=== PATIENT | male | born 1935 | race Asian ===

== ENCOUNTER 2019-02-01 11:44 | Inpatient (IN) | payer MEDICARE, OTHER ==
[~2019-02-01] VITALS: Ht 162.6 cm; Wt 54.8 kg
[2019-02-01] MEDS ORDERED: SEVE0.8P6 PO (12:09)
[2019-02-01] MEDS ORDERED: ISOS10TA16 PO (12:09)
[2019-02-01] MEDS ORDERED: ASPI81 PO (12:09)
[2019-02-01] MEDS ORDERED: NUT.237L66 PO (12:09)
[2019-02-01] MEDS ORDERED: TRAZ-252 PO (12:09)
[2019-02-01] MEDS ORDERED: DOCU-342 PO (12:09)
[2019-02-01] MEDS ORDERED: AMIO200T44 PO (12:09)
[2019-02-01] MEDS ORDERED: RANO500T3 PO (12:09)
[2019-02-01] MEDS ORDERED: POLY17PO PO (12:09)
[2019-02-01] MEDS ORDERED: INSLAN SQ (12:09)
[2019-02-01] MEDS ORDERED: PANT40TA25 PO (12:09)
[2019-02-01] MEDS ORDERED: AMLO10TA7 PO (12:09)
[2019-02-01] MEDS ORDERED: HYDR25TA84 PO (12:09)
[2019-02-01] MEDS ORDERED: LEVO500 PO (12:09)
[2019-02-01] MEDS ORDERED: ATOR40TA28 PO (12:09)
[2019-02-01] MEDS ORDERED: ALLO100T PO (12:09)
[2019-02-01] MEDS ORDERED: VIT1TABL81 PO (12:09)
[2019-02-01 12:37] LABS: BASOPHILS % (AUTO) 0.7 % (0.0-2.0); HEMATOCRIT 21.3 % (41-53); LYMPHOCYTES # (AUTO) 0.6 K/uL (1.0-4.8); LYMPHOCYTES % (AUTO) 5.9 % (22.0-44.0); MEAN CORPUSCULAR HEMOGLOBIN 26.4 pg (26.0-34.0); MEAN CORPUSCULAR HGB CONC 31.7 G/dL (31.0-37.0); MEAN CORPUSCULAR VOLUME 83 fL (80-100); MONOCYTES # (AUTO) 1.3 K/uL (0.1-1.0); MONOCYTES % (AUTO) 11.8 % (2.0-9.0); NEUTROPHILS # (AUTO) 8.9 K/uL (1.8-7.7); NEUTROPHILS % (AUTO) 80.6 % (40.0-70.0); PLATELET COUNT (AUTO) 159 K/uL (150-450); RED BLOOD CELL COUNT(AUTO) 2.56 MIL/uL (4.50-5.90); RED CELL DISTRIBUTION WIDTH 23.4 % (11.5-14.5)
[2019-02-01 12:45] LABS: HEMOGLOBIN 6.8 g/dL (13.5-17.5)
[2019-02-01 12:50] LABS: PROTHROMBIN TIME 9.9 SEC (9.4-11.6)
[2019-02-01] MEDS ORDERED: ONDANSETRON HCL 4 MG/2 ML VIAL IVP ONE (13:00)
[2019-02-01] MEDS ORDERED: SODIUM CHLORIDE 0.9% 500 ML IV ONE (13:00)
[2019-02-01] MEDS ORDERED: MORPHINE SULFATE 2 MG/ML SYRINGE IVP ONE (13:00)
[2019-02-01] MEDS: OXYGEN THERAPY IH SCH (13:05)
[2019-02-01 13:06] LABS: BILIRUBIN,TOTAL 0.5 mg/dL (0.1-1.0); CALCIUM, TOTAL 9.3 mg/dL (8.8-10.5); CREATININE 6.28 mg/dL (0.60-1.30)
[2019-02-01 13:07] LABS: TOTAL PROTEIN, SERUM 6.7 g/dL (6.4-8.2)
[2019-02-01 13:11] LABS: POTASSIUM 4.7 mmol/L (3.5-5.1)
[2019-02-01] MEDS ORDERED: NITROGLYCERIN 2% (1 GM=INCH) PACKET TP ONE (13:30)
[2019-02-01 13:39] LABS: LIPASE 60 U/L (73-393)
[2019-02-01 14:19] LABS: LACTIC ACID 3.2 mmol/L (0.4-2.0)
[2019-02-01 14:50] VITALS: BP 112/55
[2019-02-01 15:05] VITALS: BP 123/60
[2019-02-01 15:20] VITALS: BP 123/60
[2019-02-01 18:30] VITALS: BP 135/64
[2019-02-01] MEDS ORDERED: ACETAMINOPHEN 325 MG TABLET PO PRN (22:45)
[2019-02-02] VITALS (14 sets, daily range): BP systolic 119–146; BP diastolic 53–78
[2019-02-02] MEDS: MORPHINE SULFATE 2 MG/ML SYRINGE IVP PRN ×4 (00:33→16:48)
[2019-02-02] MEDS: NITROGLYCERIN 2% (1 GM=INCH) PACKET TP SCH ×6 (00:34→17:57)
[2019-02-02] MEDS: OXYGEN THERAPY IH SCH ×3 (00:36→20:22)
[2019-02-02 03:22] LABS: HEMOGLOBIN 8.1 g/dL (13.5-17.5)
[2019-02-02 03:38] LABS: CHOL/HDL RATIO 1.8 (4.2-7.3)
[2019-02-02 06:28] LABS: GLUCOMETER DEV NAME(LOC) 5N.2; GLUCOSE,POINT OF CARE 185 MG/DL (70-110)
[2019-02-02] MEDS ORDERED: DEXTROSE 50%-WATER 25 GM/50 ML SYRINGE IVP PRN (07:30)
[2019-02-02] MEDS: SEVELAMER CARBONATE 800 MG POWDER PACKET PO SCH ×3 (08:00→17:56)
[2019-02-02] MEDS: POLYETHYLENE GLYCOL 3350 17 GM PACKET PO SCH (09:00)
[2019-02-02] MEDS: LEVOFLOXACIN 500 MG TABLET PO SCH (09:00)
[2019-02-02] MEDS ORDERED: ASPIRIN 81 MG CHEWABLE TABLET PO SCH (09:00)
[2019-02-02] MEDS: ALLOPURINOL 100 MG TABLET PO SCH (09:00)
[2019-02-02] MEDS ORDERED: INSULIN GLARGINE,HUM.REC.ANLOG 100 UNITS/ML SQ SCH (09:00)
[2019-02-02] MEDS ORDERED: DOCUSATE SODIUM 100 MG CAPSULE PO SCH (09:00)
[2019-02-02] MEDS: ISOSORBIDE DINITRATE 10 MG TABLET PO SCH ×3 (09:00→21:38)
[2019-02-02] MEDS: ATORVASTATIN CALCIUM 40 MG TABLET PO SCH (09:00)
[2019-02-02] MEDS: AMIODARONE HCL 200 MG TABLET PO SCH (09:00)
[2019-02-02] MEDS: AmLODIPine BESYLATE 10 MG TABLET PO SCH (09:00)
[2019-02-02] MEDS: DOCUSATE SODIUM 250 MG CAPSULE PO SCH ×2 (09:00→21:41)
[2019-02-02] MEDS: TraZODone HCL 50 MG TABLET PO SCH (09:00)
[2019-02-02] MEDS: METOPROLOL TARTRATE 25 MG TABLET PO SCH ×2 (09:00→20:16)
[2019-02-02] MEDS: HydrALAZINE HCL 25 MG TABLET PO SCH ×3 (09:00→21:38)
[2019-02-02] MEDS: PANTOPRAZOLE SODIUM 40 MG DR TABLET PO SCH ×2 (09:00→20:17)
[2019-02-02] MEDS: RANOLAZINE 500 MG ER TABLET PO SCH ×5 (09:00→21:38)
[2019-02-02] MEDS: VITAMIN B COMPLEX WITH C TABLET PO SCH (09:00)
[2019-02-02] MEDS ORDERED: ONDANSETRON HCL 4 MG/2 ML VIAL IVP PRN (10:15)
[2019-02-02] MEDS ORDERED: SODIUM CHLORIDE 0.9% 500 ML IV ONE (13:29)
[2019-02-02 13:44] LABS: HEMATOCRIT 26.2 % (41-53); HEMOGLOBIN 8.5 g/dL (13.5-17.5)
[2019-02-02] MEDS ORDERED: SODIUM CHLORIDE 0.9% IRRIG BTL 1,000 ML IRRIG ONE (17:06)
[2019-02-02 17:45] LABS: GLUCOMETER DEV NAME(LOC) 5N.1; GLUCOSE,POINT OF CARE 133 MG/DL (70-110)
[2019-02-02] MEDS: INSULIN LISPRO 100 UNITS/ML SQ PRN (18:03)
[2019-02-02 20:39] LABS: HEMATOCRIT 30.1 % (41-53); HEMOGLOBIN 9.7 g/dL (13.5-17.5)
[2019-02-02] MEDS: INSULIN GLARGINE,HUM.REC.ANLOG 100 UNITS/ML SQ SCH (21:00)
[2019-02-03 00:07] VITALS: BP 139/67
[2019-02-03] MEDS: ZOLPIDEM TARTRATE 10 MG TABLET PO PRN (00:10)
[2019-02-03] MEDS: NITROGLYCERIN 2% (1 GM=INCH) PACKET TP SCH ×5 (00:10→18:12)
[2019-02-03 01:10] LABS: GLUCOMETER DEV NAME(LOC) 5N.2; GLUCOSE,POINT OF CARE 170 MG/DL (70-110)
[2019-02-03 01:11] LABS: GLUCOMETER DEV NAME(LOC) 5N.1; GLUCOSE,POINT OF CARE 79 MG/DL (70-110)
[2019-02-03 05:14] VITALS: BP 105/56
[2019-02-03] MEDS ORDERED: SODIUM CL IRRIG SOLN BOTTLE 250 ML IRRIG ONE (05:32)
[2019-02-03 06:41] LABS: GLUCOMETER DEV NAME(LOC) 5N.2; GLUCOSE,POINT OF CARE 223 MG/DL (70-110)
[2019-02-03] MEDS: INSULIN LISPRO 100 UNITS/ML SQ PRN ×3 (06:44→18:25)
[2019-02-03 07:49] LABS: BASOPHILS % (AUTO) 0.1 % (0.0-2.0); EOSINOPHILS % (AUTO) 0.5 % (1.0-6.0); HEMATOCRIT 27.9 % (41-53); LYMPHOCYTES # (AUTO) 0.4 K/uL (1.0-4.8); LYMPHOCYTES % (AUTO) 3.1 % (22.0-44.0); MEAN CORPUSCULAR HEMOGLOBIN 27.1 pg (26.0-34.0); MEAN CORPUSCULAR HGB CONC 32.1 G/dL (31.0-37.0); MEAN CORPUSCULAR VOLUME 85 fL (80-100); MONOCYTES # (AUTO) 1.6 K/uL (0.1-1.0); MONOCYTES % (AUTO) 12.7 % (2.0-9.0); NEUTROPHILS # (AUTO) 10.3 K/uL (1.8-7.7); NEUTROPHILS % (AUTO) 83.6 % (40.0-70.0); PLATELET COUNT (AUTO) 154 K/uL (150-450); RED BLOOD CELL COUNT(AUTO) 3.31 MIL/uL (4.50-5.90); RED CELL DISTRIBUTION WIDTH 20.9 % (11.5-14.5)
[2019-02-03 08:01] LABS: ALBUMIN 2.7 g/dL (3.4-5.0); BILIRUBIN,TOTAL 0.6 mg/dL (0.1-1.0); CALCIUM, TOTAL 9.1 mg/dL (8.8-10.5); CREATININE 6.46 mg/dL (0.60-1.30); MAGNESIUM 2.3 mg/dL (1.80-2.40); POTASSIUM 4.7 mmol/L (3.5-5.1); TOTAL PROTEIN, SERUM 6.7 g/dL (6.4-8.2)
[2019-02-03 08:08] VITALS: BP 115/60
[2019-02-03] MEDS: SEVELAMER CARBONATE 800 MG POWDER PACKET PO SCH ×3 (08:39→18:12)
[2019-02-03] MEDS: OXYGEN THERAPY IH SCH ×2 (08:40→21:13)
[2019-02-03] MEDS: METOPROLOL TARTRATE 25 MG TABLET PO SCH ×2 (09:00→21:14)
[2019-02-03] MEDS: DOCUSATE SODIUM 250 MG CAPSULE PO SCH ×2 (09:00→21:14)
[2019-02-03] MEDS: HydrALAZINE HCL 25 MG TABLET PO SCH ×2 (09:00→21:00)
[2019-02-03 11:49] VITALS: BP 162/93
[2019-02-03] MEDS: RANOLAZINE 500 MG ER TABLET PO SCH ×4 (12:16→21:12)
[2019-02-03] MEDS: ATORVASTATIN CALCIUM 40 MG TABLET PO SCH (12:16)
[2019-02-03] MEDS: LEVOFLOXACIN 500 MG TABLET PO SCH (12:16)
[2019-02-03] MEDS: PANTOPRAZOLE SODIUM 40 MG DR TABLET PO SCH ×2 (12:17→21:14)
[2019-02-03] MEDS: AMIODARONE HCL 200 MG TABLET PO SCH (12:17)
[2019-02-03] MEDS: VITAMIN B COMPLEX WITH C TABLET PO SCH (12:17)
[2019-02-03] MEDS: ALLOPURINOL 100 MG TABLET PO SCH (12:18)
[2019-02-03] MEDS ORDERED: SODIUM CHLORIDE 0.9% 2,000 ML IV ONE (12:25)
[2019-02-03] MEDS: ISOSORBIDE DINITRATE 10 MG TABLET PO SCH ×2 (18:11→21:14)
[2019-02-03] MEDS: TraZODone HCL 50 MG TABLET PO SCH (18:12)
[2019-02-03] MEDS: POLYETHYLENE GLYCOL 3350 17 GM PACKET PO SCH (18:12)
[2019-02-03] MEDS: AmLODIPine BESYLATE 10 MG TABLET PO SCH (18:12)
[2019-02-03 20:16] VITALS: BP 145/89
[2019-02-03] MEDS: INSULIN GLARGINE,HUM.REC.ANLOG 100 UNITS/ML SQ SCH (21:13)
[2019-02-04] VITALS (15 sets, daily range): BP systolic 84–136; BP diastolic 37–86
[2019-02-04] MEDS: NITROGLYCERIN 2% (1 GM=INCH) PACKET TP SCH ×3 (00:33→16:15)
[2019-02-04] MEDS: MAGNESIUM HYDROXIDE SUSPENSION 30 ML UDCUP PO PRN (04:35)
[2019-02-04] MEDS: INSULIN LISPRO 100 UNITS/ML SQ PRN ×2 (06:20→11:40)
[2019-02-04 07:10] LABS: GLUCOMETER DEV NAME(LOC) 5N.1; GLUCOSE,POINT OF CARE 152 MG/DL (70-110)
[2019-02-04 07:36] LABS: BASOPHILS % (AUTO) 0.1 % (0.0-2.0); EOSINOPHILS % (AUTO) 1.1 % (1.0-6.0); HEMATOCRIT 23.9 % (41-53); HEMOGLOBIN 7.7 g/dL (13.5-17.5); LYMPHOCYTES # (AUTO) 0.5 K/uL (1.0-4.8); LYMPHOCYTES % (AUTO) 4.5 % (22.0-44.0); MEAN CORPUSCULAR HEMOGLOBIN 27.1 pg (26.0-34.0); MEAN CORPUSCULAR HGB CONC 32.1 G/dL (31.0-37.0); MEAN CORPUSCULAR VOLUME 84 fL (80-100); MONOCYTES # (AUTO) 1.5 K/uL (0.1-1.0); MONOCYTES % (AUTO) 12.9 % (2.0-9.0); NEUTROPHILS # (AUTO) 9.3 K/uL (1.8-7.7); NEUTROPHILS % (AUTO) 81.4 % (40.0-70.0); PLATELET COUNT (AUTO) 135 K/uL (150-450); RED BLOOD CELL COUNT(AUTO) 2.84 MIL/uL (4.50-5.90); RED CELL DISTRIBUTION WIDTH 20.5 % (11.5-14.5)
[2019-02-04 08:08] LABS: ALBUMIN 2.2 g/dL (3.4-5.0); BILIRUBIN,TOTAL 0.5 mg/dL (0.1-1.0); CALCIUM, TOTAL 8.8 mg/dL (8.8-10.5); CREATININE 4.55 mg/dL (0.60-1.30); POTASSIUM 4.3 mmol/L (3.5-5.1)
[2019-02-04] MEDS: SEVELAMER CARBONATE 800 MG POWDER PACKET PO SCH ×3 (08:50→17:43)
[2019-02-04] MEDS: VITAMIN B COMPLEX WITH C TABLET PO SCH (08:51)
[2019-02-04] MEDS: DOCUSATE SODIUM 250 MG CAPSULE PO SCH ×2 (08:51→20:26)
[2019-02-04] MEDS: OXYGEN THERAPY IH SCH ×2 (08:51→20:18)
[2019-02-04] MEDS: POLYETHYLENE GLYCOL 3350 17 GM PACKET PO SCH (08:51)
[2019-02-04] MEDS: ALLOPURINOL 100 MG TABLET PO SCH (08:52)
[2019-02-04] MEDS: AmLODIPine BESYLATE 10 MG TABLET PO SCH (08:52)
[2019-02-04] MEDS: ATORVASTATIN CALCIUM 40 MG TABLET PO SCH (08:52)
[2019-02-04] MEDS: RANOLAZINE 500 MG ER TABLET PO SCH ×3 (08:52→20:26)
[2019-02-04] MEDS: AMIODARONE HCL 200 MG TABLET PO SCH (08:52)
[2019-02-04] MEDS: LEVOFLOXACIN 250 MG TABLET PO SCH (08:53)
[2019-02-04] MEDS: TraZODone HCL 50 MG TABLET PO SCH (08:53)
[2019-02-04] MEDS: ISOSORBIDE DINITRATE 10 MG TABLET PO SCH ×3 (08:54→20:38)
[2019-02-04] MEDS: PANTOPRAZOLE SODIUM 40 MG DR TABLET PO SCH ×2 (08:55→20:26)
[2019-02-04] MEDS: METOPROLOL TARTRATE 25 MG TABLET PO SCH ×2 (09:00→20:38)
[2019-02-04] MEDS: HydrALAZINE HCL 25 MG TABLET PO SCH ×2 (09:00→20:38)
[2019-02-04] MEDS ORDERED: SODIUM CL IRRIG SOLN BOTTLE 250 ML IRRIG ONE (09:13)
[2019-02-04] MEDS ORDERED: SODIUM CHLORIDE 0.9% IRRIG BTL 1,000 ML IRRIG ONE ×2 (09:23→10:38)
[2019-02-04] MEDS ORDERED: SODIUM CHLORIDE 0.9% 500 ML IV ONE (10:30)
[2019-02-04] MEDS ORDERED: SODIUM CHLORIDE 0.9% 250 ML IV ONE (10:38)
[2019-02-04 10:41] LABS: GLUCOMETER DEV NAME(LOC) 5N.2; GLUCOSE,POINT OF CARE 132 MG/DL (70-110)
[2019-02-04 10:41] LABS: GLUCOMETER DEV NAME(LOC) 5N.2; GLUCOSE,POINT OF CARE 170 MG/DL (70-110)
[2019-02-04 10:41] LABS: GLUCOMETER DEV NAME(LOC) 5N.2; GLUCOSE,POINT OF CARE 151 MG/DL (70-110)
[2019-02-04 15:02] LABS: GLUCOMETER DEV NAME(LOC) 5N.1; GLUCOSE,POINT OF CARE 160 MG/DL (70-110)
[2019-02-04 15:37] LABS: HEMATOCRIT 26.1 % (41-53); HEMOGLOBIN 8.5 g/dL (13.5-17.5)
[2019-02-04] MEDS: INSULIN GLARGINE,HUM.REC.ANLOG 100 UNITS/ML SQ SCH (20:39)
[2019-02-04 21:03] LABS: GLUCOMETER DEV NAME(LOC) 5N.1; GLUCOSE,POINT OF CARE 126 MG/DL (70-110)
[2019-02-05] VITALS (7 sets, daily range): BP systolic 93–131; BP diastolic 46–76
[2019-02-05] MEDS: NITROGLYCERIN 2% (1 GM=INCH) PACKET TP SCH ×3 (00:15→16:33)
[2019-02-05 08:00] LABS: BASOPHILS % (AUTO) 0.1 % (0.0-2.0); EOSINOPHILS % (AUTO) 2.6 % (1.0-6.0); HEMATOCRIT 26.4 % (41-53); HEMOGLOBIN 8.8 g/dL (13.5-17.5); LYMPHOCYTES # (AUTO) 0.5 K/uL (1.0-4.8); LYMPHOCYTES % (AUTO) 4.9 % (22.0-44.0); MEAN CORPUSCULAR HEMOGLOBIN 28.1 pg (26.0-34.0); MEAN CORPUSCULAR HGB CONC 33.4 G/dL (31.0-37.0); MEAN CORPUSCULAR VOLUME 84 fL (80-100); MONOCYTES # (AUTO) 1.2 K/uL (0.1-1.0); MONOCYTES % (AUTO) 11.8 % (2.0-9.0); NEUTROPHILS # (AUTO) 8.4 K/uL (1.8-7.7); NEUTROPHILS % (AUTO) 80.6 % (40.0-70.0); PLATELET COUNT (AUTO) 143 K/uL (150-450); RED BLOOD CELL COUNT(AUTO) 3.14 MIL/uL (4.50-5.90); RED CELL DISTRIBUTION WIDTH 19.3 % (11.5-14.5)
[2019-02-05] MEDS: SEVELAMER CARBONATE 800 MG POWDER PACKET PO SCH ×3 (08:00→16:33)
[2019-02-05 08:20] LABS: ALBUMIN 2.1 g/dL (3.4-5.0); BILIRUBIN,TOTAL 0.5 mg/dL (0.1-1.0); CALCIUM, TOTAL 8.7 mg/dL (8.8-10.5); CREATININE 6.63 mg/dL (0.60-1.30); POTASSIUM 5.7 mmol/L (3.5-5.1)
[2019-02-05] MEDS: VITAMIN B COMPLEX WITH C TABLET PO SCH (08:53)
[2019-02-05] MEDS: OXYGEN THERAPY IH SCH ×2 (08:53→20:25)
[2019-02-05] MEDS: TraZODone HCL 50 MG TABLET PO SCH (08:53)
[2019-02-05] MEDS: ATORVASTATIN CALCIUM 40 MG TABLET PO SCH (08:54)
[2019-02-05] MEDS: DOCUSATE SODIUM 250 MG CAPSULE PO SCH ×2 (08:54→20:24)
[2019-02-05] MEDS: AMIODARONE HCL 200 MG TABLET PO SCH (08:54)
[2019-02-05] MEDS: ALLOPURINOL 100 MG TABLET PO SCH (08:56)
[2019-02-05] MEDS: PANTOPRAZOLE SODIUM 40 MG DR TABLET PO SCH ×2 (08:57→20:24)
[2019-02-05] MEDS: POLYETHYLENE GLYCOL 3350 17 GM PACKET PO SCH (08:59)
[2019-02-05] MEDS: METOPROLOL TARTRATE 25 MG TABLET PO SCH ×2 (09:00→20:24)
[2019-02-05] MEDS: RANOLAZINE 500 MG ER TABLET PO SCH ×2 (09:00→20:23)
[2019-02-05] MEDS: HydrALAZINE HCL 25 MG TABLET PO SCH ×2 (09:00→20:24)
[2019-02-05] MEDS: ISOSORBIDE DINITRATE 10 MG TABLET PO SCH ×3 (09:00→20:24)
[2019-02-05] MEDS: AmLODIPine BESYLATE 10 MG TABLET PO SCH (09:00)
[2019-02-05] MEDS: LEVOFLOXACIN 250 MG TABLET PO SCH (09:00)
[2019-02-05] MEDS ORDERED: DEXTROSE 5%-0.9% SODIUM CHL 1,000 ML IV SCH (09:45)
[2019-02-05] MEDS: INSULIN LISPRO 100 UNITS/ML SQ PRN ×2 (12:03→17:07)
[2019-02-05 16:42] LABS: GLUCOMETER DEV NAME(LOC) 5N.1; GLUCOSE,POINT OF CARE 124 MG/DL (70-110)
[2019-02-05 16:42] LABS: GLUCOMETER DEV NAME(LOC) 5N.1; GLUCOSE,POINT OF CARE 127 MG/DL (70-110)
[2019-02-05 16:44] LABS: GLUCOMETER DEV NAME(LOC) 5N.2; GLUCOSE,POINT OF CARE 129 MG/DL (70-110)
[2019-02-05] MEDS: INSULIN GLARGINE,HUM.REC.ANLOG 100 UNITS/ML SQ SCH (20:28)
[2019-02-06] MEDS: NITROGLYCERIN 2% (1 GM=INCH) PACKET TP SCH ×3 (00:52→16:08)
[2019-02-06 04:42] VITALS: BP 129/67
[2019-02-06] MEDS ORDERED: SODIUM CHLORIDE 0.9% IRRIG BTL 1,000 ML IRRIG ONE (05:22)
[2019-02-06 06:05] LABS: BASOPHILS % (AUTO) 0.3 % (0.0-2.0); EOSINOPHILS % (AUTO) 1.7 % (1.0-6.0); HEMATOCRIT 31.3 % (41-53); HEMOGLOBIN 10.1 g/dL (13.5-17.5); LYMPHOCYTES # (AUTO) 0.3 K/uL (1.0-4.8); LYMPHOCYTES % (AUTO) 3.3 % (22.0-44.0); MEAN CORPUSCULAR HEMOGLOBIN 27.2 pg (26.0-34.0); MEAN CORPUSCULAR HGB CONC 32.2 G/dL (31.0-37.0); MEAN CORPUSCULAR VOLUME 85 fL (80-100); MONOCYTES # (AUTO) 1.2 K/uL (0.1-1.0); MONOCYTES % (AUTO) 11.6 % (2.0-9.0); NEUTROPHILS # (AUTO) 8.4 K/uL (1.8-7.7); NEUTROPHILS % (AUTO) 83.1 % (40.0-70.0); PLATELET COUNT (AUTO) 175 K/uL (150-450); RED CELL DISTRIBUTION WIDTH 19.7 % (11.5-14.5)
[2019-02-06] MEDS: INSULIN LISPRO 100 UNITS/ML SQ PRN ×2 (06:11→17:31)
[2019-02-06 06:28] LABS: ALBUMIN 2.3 g/dL (3.4-5.0); BILIRUBIN,TOTAL 0.5 mg/dL (0.1-1.0); CREATININE 8.56 mg/dL (0.60-1.30); POTASSIUM 5.8 mmol/L (3.5-5.1); TOTAL PROTEIN, SERUM 6.6 g/dL (6.4-8.2)
[2019-02-06 07:52] VITALS: BP 135/69
[2019-02-06 08:05] LABS: GLUCOMETER DEV NAME(LOC) 5N.1; GLUCOSE,POINT OF CARE 145 MG/DL (70-110)
[2019-02-06 08:05] LABS: GLUCOMETER DEV NAME(LOC) 5N.1; GLUCOSE,POINT OF CARE 110 MG/DL (70-110)
[2019-02-06 08:05] LABS: GLUCOMETER DEV NAME(LOC) 5N.2; GLUCOSE,POINT OF CARE 175 MG/DL (70-110)
[2019-02-06] MEDS: SEVELAMER CARBONATE 800 MG POWDER PACKET PO SCH ×3 (08:36→17:59)
[2019-02-06] MEDS: VITAMIN B COMPLEX WITH C TABLET PO SCH (08:38)
[2019-02-06] MEDS: RANOLAZINE 500 MG ER TABLET PO SCH ×2 (08:38→20:52)
[2019-02-06] MEDS: OXYGEN THERAPY IH SCH ×2 (08:39→20:48)
[2019-02-06] MEDS: PANTOPRAZOLE SODIUM 40 MG DR TABLET PO SCH ×2 (08:39→20:52)
[2019-02-06] MEDS: DOCUSATE SODIUM 250 MG CAPSULE PO SCH ×2 (09:00→20:52)
[2019-02-06] MEDS: ISOSORBIDE DINITRATE 10 MG TABLET PO SCH ×3 (09:00→20:53)
[2019-02-06] MEDS: METOPROLOL TARTRATE 25 MG TABLET PO SCH ×2 (09:00→20:52)
[2019-02-06] MEDS: HydrALAZINE HCL 25 MG TABLET PO SCH ×2 (09:00→20:53)
[2019-02-06 11:13] VITALS: BP 138/71
[2019-02-06] MEDS: TraZODone HCL 50 MG TABLET PO SCH (12:57)
[2019-02-06] MEDS: LEVOFLOXACIN 250 MG TABLET PO SCH (12:57)
[2019-02-06] MEDS: AmLODIPine BESYLATE 10 MG TABLET PO SCH (12:57)
[2019-02-06] MEDS: ATORVASTATIN CALCIUM 40 MG TABLET PO SCH (12:57)
[2019-02-06] MEDS: AMIODARONE HCL 200 MG TABLET PO SCH (13:00)
[2019-02-06 13:02] VITALS: BP 155/74
[2019-02-06] MEDS: POLYETHYLENE GLYCOL 3350 17 GM PACKET PO SCH (13:03)
[2019-02-06 14:10] LABS: GLUCOMETER DEV NAME(LOC) 5N.1; GLUCOSE,POINT OF CARE 118 MG/DL (70-110)
[2019-02-06 15:34] VITALS: BP 139/62
[2019-02-06 19:54] VITALS: BP 119/62
[2019-02-06] MEDS: INSULIN GLARGINE,HUM.REC.ANLOG 100 UNITS/ML SQ SCH (20:52)
[2019-02-06 21:30] LABS: GLUCOMETER DEV NAME(LOC) 5N.1; GLUCOSE,POINT OF CARE 177 MG/DL (70-110)
[2019-02-06 21:30] LABS: GLUCOMETER DEV NAME(LOC) 5N.1; GLUCOSE,POINT OF CARE 152 MG/DL (70-110)
[2019-02-06] MEDS: ZOLPIDEM TARTRATE 10 MG TABLET PO PRN (23:34)
[2019-02-07] VITALS (7 sets, daily range): BP systolic 123–145; BP diastolic 52–75
[2019-02-07] MEDS: NITROGLYCERIN 2% (1 GM=INCH) PACKET TP SCH ×3 (00:15→17:55)
[2019-02-07 06:02] LABS: BASOPHILS % (AUTO) 0.2 % (0.0-2.0); EOSINOPHILS % (AUTO) 1.8 % (1.0-6.0); HEMATOCRIT 26.5 % (41-53); HEMOGLOBIN 8.9 g/dL (13.5-17.5); LYMPHOCYTES # (AUTO) 0.4 K/uL (1.0-4.8); LYMPHOCYTES % (AUTO) 4.6 % (22.0-44.0); MEAN CORPUSCULAR HEMOGLOBIN 27.9 pg (26.0-34.0); MEAN CORPUSCULAR HGB CONC 33.5 G/dL (31.0-37.0); MEAN CORPUSCULAR VOLUME 83 fL (80-100); MONOCYTES # (AUTO) 1.5 K/uL (0.1-1.0); MONOCYTES % (AUTO) 16.3 % (2.0-9.0); NEUTROPHILS # (AUTO) 7.1 K/uL (1.8-7.7); NEUTROPHILS % (AUTO) 77.1 % (40.0-70.0); PLATELET COUNT (AUTO) 160 K/uL (150-450); RED BLOOD CELL COUNT(AUTO) 3.18 MIL/uL (4.50-5.90); RED CELL DISTRIBUTION WIDTH 18.9 % (11.5-14.5)
[2019-02-07 06:23] LABS: ALBUMIN 2.2 g/dL (3.4-5.0); BILIRUBIN,TOTAL 0.5 mg/dL (0.1-1.0); CALCIUM, TOTAL 8.6 mg/dL (8.8-10.5); CREATININE 6.09 mg/dL (0.60-1.30); POTASSIUM 4.9 mmol/L (3.5-5.1); TOTAL PROTEIN, SERUM 6.5 g/dL (6.4-8.2)
[2019-02-07 06:59] LABS: GLUCOMETER DEV NAME(LOC) 5N.1; GLUCOSE,POINT OF CARE 93 MG/DL (70-110)
[2019-02-07] MEDS: AMIODARONE HCL 200 MG TABLET PO SCH (09:00)
[2019-02-07] MEDS: HydrALAZINE HCL 25 MG TABLET PO SCH ×2 (09:00→20:40)
[2019-02-07] MEDS: AmLODIPine BESYLATE 10 MG TABLET PO SCH (09:00)
[2019-02-07] MEDS: OXYGEN THERAPY IH SCH ×2 (09:18→20:39)
[2019-02-07] MEDS: RANOLAZINE 500 MG ER TABLET PO SCH ×2 (09:19→20:39)
[2019-02-07] MEDS: LEVOFLOXACIN 250 MG TABLET PO SCH (09:19)
[2019-02-07] MEDS: SEVELAMER CARBONATE 800 MG POWDER PACKET PO SCH ×3 (09:19→17:52)
[2019-02-07] MEDS: VITAMIN B COMPLEX WITH C TABLET PO SCH (09:19)
[2019-02-07] MEDS: DOCUSATE SODIUM 250 MG CAPSULE PO SCH ×2 (09:20→20:40)
[2019-02-07] MEDS: ATORVASTATIN CALCIUM 40 MG TABLET PO SCH (09:21)
[2019-02-07] MEDS: PANTOPRAZOLE SODIUM 40 MG DR TABLET PO SCH ×2 (09:21→20:39)
[2019-02-07] MEDS: POLYETHYLENE GLYCOL 3350 17 GM PACKET PO SCH (09:33)
[2019-02-07] MEDS: TraZODone HCL 50 MG TABLET PO SCH (09:34)
[2019-02-07] MEDS: METOPROLOL TARTRATE 25 MG TABLET PO SCH ×2 (12:16→20:39)
[2019-02-07] MEDS: ISOSORBIDE DINITRATE 10 MG TABLET PO SCH ×3 (12:16→20:42)
[2019-02-07] MEDS: INSULIN LISPRO 100 UNITS/ML SQ PRN (12:22)
[2019-02-07] MEDS ORDERED: SODIUM CHLORIDE 0.9% IRRIG BTL 1,000 ML IRRIG ONE (17:58)
[2019-02-07] MEDS ORDERED: SODIUM CHLORIDE 0.9% IRRIG ONE (18:05)
[2019-02-07] MEDS: INSULIN GLARGINE,HUM.REC.ANLOG 100 UNITS/ML SQ SCH (20:52)
[2019-02-07] MEDS: HYDROCODONE/ACETAMINOPHEN 5-325 MG TABLET PO PRN (23:27)
[2019-02-08] VITALS (13 sets, daily range): BP systolic 93–150; BP diastolic 50–68
[2019-02-08] MEDS: NITROGLYCERIN 2% (1 GM=INCH) PACKET TP SCH ×3 (00:15→16:15)
[2019-02-08 03:48] LABS: GLUCOMETER DEV NAME(LOC) 5N.1; GLUCOSE,POINT OF CARE 88 MG/DL (70-110)
[2019-02-08] MEDS: SODIUM CHLORIDE 0.9% 250 ML IV SCH ×2 (04:05→08:20)
[2019-02-08 06:48] LABS: BASOPHILS % (AUTO) 0.4 % (0.0-2.0); EOSINOPHILS % (AUTO) 2.6 % (1.0-6.0); HEMATOCRIT 21.8 % (41-53); HEMOGLOBIN 7.2 g/dL (13.5-17.5); LYMPHOCYTES # (AUTO) 0.7 K/uL (1.0-4.8); LYMPHOCYTES % (AUTO) 8.8 % (22.0-44.0); MEAN CORPUSCULAR HEMOGLOBIN 27.8 pg (26.0-34.0); MEAN CORPUSCULAR HGB CONC 33.1 G/dL (31.0-37.0); MEAN CORPUSCULAR VOLUME 84 fL (80-100); MONOCYTES # (AUTO) 1.5 K/uL (0.1-1.0); MONOCYTES % (AUTO) 18.2 % (2.0-9.0); NEUTROPHILS # (AUTO) 5.9 K/uL (1.8-7.7); PLATELET COUNT (AUTO) 149 K/uL (150-450); RED CELL DISTRIBUTION WIDTH 18.4 % (11.5-14.5)
[2019-02-08 07:08] LABS: BILIRUBIN,TOTAL 0.5 mg/dL (0.1-1.0); CALCIUM, TOTAL 8.4 mg/dL (8.8-10.5); CREATININE 7.87 mg/dL (0.60-1.30); TOTAL PROTEIN, SERUM 5.8 g/dL (6.4-8.2)
[2019-02-08] MEDS: SEVELAMER CARBONATE 800 MG POWDER PACKET PO SCH ×3 (08:00→20:16)
[2019-02-08] MEDS ORDERED: SODIUM CHLORIDE 0.9% 2,000 ML IV ONE (08:51)
[2019-02-08] MEDS: PANTOPRAZOLE SODIUM 40 MG DR TABLET PO SCH ×2 (09:00→20:16)
[2019-02-08] MEDS: DOCUSATE SODIUM 250 MG CAPSULE PO SCH ×2 (09:00→21:00)
[2019-02-08] MEDS: ATORVASTATIN CALCIUM 40 MG TABLET PO SCH (09:00)
[2019-02-08] MEDS: RANOLAZINE 500 MG ER TABLET PO SCH ×2 (09:00→20:16)
[2019-02-08] MEDS: TraZODone HCL 50 MG TABLET PO SCH (09:00)
[2019-02-08] MEDS: HydrALAZINE HCL 25 MG TABLET PO SCH ×2 (09:00→21:00)
[2019-02-08] MEDS: VITAMIN B COMPLEX WITH C TABLET PO SCH (09:00)
[2019-02-08] MEDS: ISOSORBIDE DINITRATE 10 MG TABLET PO SCH ×3 (09:00→21:00)
[2019-02-08] MEDS: METOPROLOL TARTRATE 25 MG TABLET PO SCH ×2 (09:00→20:16)
[2019-02-08] MEDS: AmLODIPine BESYLATE 10 MG TABLET PO SCH (09:00)
[2019-02-08] MEDS: POLYETHYLENE GLYCOL 3350 17 GM PACKET PO SCH (09:00)
[2019-02-08] MEDS: LEVOFLOXACIN 250 MG TABLET PO SCH (09:00)
[2019-02-08] MEDS: AMIODARONE HCL 200 MG TABLET PO SCH (09:00)
[2019-02-08] MEDS ORDERED: MANNITOL 25%-12.5 GM/50 ML VIAL IVP ONE (09:07)
[2019-02-08] MEDS ORDERED: DEXTROSE 5%-0.9% SODIUM CHL 1,000 ML IV SCH (09:30)
[2019-02-08] MEDS: OXYGEN THERAPY IH SCH (09:50)
[2019-02-08] MEDS: HYDROCODONE/ACETAMINOPHEN 5-325 MG TABLET PO PRN (10:25)
[2019-02-08] MEDS ORDERED: SODIUM CHLORIDE 0.9% 1,000 ML IV ONE ×3 (10:35→16:38)
[2019-02-08] MEDS ORDERED: 0.9% SODIUM CHLORIDE 10 ML VIAL IVP ONE (12:00)
[2019-02-08] MEDS ORDERED: ONDANSETRON HCL 4 MG/2 ML VIAL IVP ONE (12:00)
[2019-02-08] MEDS ORDERED: LIDOCAINE/PF 2% 5 ML VIAL INJ ONE (12:00)
[2019-02-08] MEDS ORDERED: EPHEDrine SULFATE 50 MG/ML VIAL IM ONE (12:00)
[2019-02-08] MEDS ORDERED: NEOSTIGMINE METHYLSULFATE 1 MG/ML 10 ML VIAL IVP ONE (12:00)
[2019-02-08] MEDS ORDERED: FentaNYL CITRATE-PF 100 MCG/2 ML VIAL IVP ONE (12:00)
[2019-02-08] MEDS ORDERED: ROCURONIUM BROMIDE 10 MG/ML 5 ML VIAL IVP ONE (12:00)
[2019-02-08] MEDS ORDERED: GLYCOPYRROLATE 0.2 MG/ML VIAL IM ONE (12:00)
[2019-02-08] MEDS ORDERED: PHENYLEPHRINE HCL 10 MG/ML VIAL IVP ONE (12:00)
[2019-02-08] MEDS ORDERED: PROPOFOL 1% 20 ML VIAL IVP ONE (12:00)
[2019-02-08 12:26] LABS: GLUCOMETER DEV NAME(LOC) 5S.2A; GLUCOSE,POINT OF CARE 159 MG/DL (70-110)
[2019-02-08 12:26] LABS: GLUCOMETER DEV NAME(LOC) 5S.2A; GLUCOSE,POINT OF CARE 173 MG/DL (70-110)
[2019-02-08 12:26] LABS: GLUCOMETER DEV NAME(LOC) 5S.2A; GLUCOSE,POINT OF CARE 96 MG/DL (70-110)
[2019-02-08 14:44] LABS: GLUCOMETER DEV NAME(LOC) 5N.1; GLUCOSE,POINT OF CARE 86 MG/DL (70-110)
[2019-02-08 15:06] LABS: BASOPHILS % (AUTO) 0.3 % (0.0-2.0); EOSINOPHILS % (AUTO) 1.8 % (1.0-6.0); HEMATOCRIT 25.6 % (41-53); HEMOGLOBIN 8.5 g/dL (13.5-17.5); LYMPHOCYTES # (AUTO) 0.6 K/uL (1.0-4.8); LYMPHOCYTES % (AUTO) 8.3 % (22.0-44.0); MEAN CORPUSCULAR HEMOGLOBIN 27.5 pg (26.0-34.0); MEAN CORPUSCULAR HGB CONC 33.2 G/dL (31.0-37.0); MEAN CORPUSCULAR VOLUME 83 fL (80-100); MONOCYTES # (AUTO) 1.2 K/uL (0.1-1.0); MONOCYTES % (AUTO) 17.5 % (2.0-9.0); NEUTROPHILS # (AUTO) 4.9 K/uL (1.8-7.7); NEUTROPHILS % (AUTO) 72.1 % (40.0-70.0); PLATELET COUNT (AUTO) 138 K/uL (150-450); RED BLOOD CELL COUNT(AUTO) 3.09 MIL/uL (4.50-5.90); RED CELL DISTRIBUTION WIDTH 17.6 % (11.5-14.5)
[2019-02-08 15:27] LABS: CALCIUM, TOTAL 8.2 mg/dL (8.8-10.5); CREATININE 3.61 mg/dL (0.60-1.30); POTASSIUM 4.5 mmol/L (3.5-5.1)
[2019-02-08] MEDS ORDERED: FUROSEMIDE 20 MG/2 ML VIAL IVP ONE (15:30)
[2019-02-08 15:34] LABS: BILIRUBIN,TOTAL 0.6 mg/dL (0.1-1.0); TOTAL PROTEIN, SERUM 5.8 g/dL (6.4-8.2)
[2019-02-08] MEDS ORDERED: WATER FOR IRRIGATION,STERILE 3,000 ML IRRIG ONE ×2 (17:10→17:28)
[2019-02-08] MEDS ORDERED: LEVOFLOXACIN 250 MG/D5% WATER 50 ML IV ONE (17:15)
[2019-02-08] MEDS ORDERED: WATER FOR IRRIGATION,STERILE 6,000 ML IRRIG ONE (17:17)
[2019-02-08] MEDS: SODIUM CHLORIDE 0.9% 1,000 ML IV SCH (20:17)
[2019-02-08] MEDS: MORPHINE SULFATE 2 MG/ML SYRINGE IVP PRN (20:23)
[2019-02-08] MEDS: INSULIN GLARGINE,HUM.REC.ANLOG 100 UNITS/ML SQ SCH (23:02)
[2019-02-09] VITALS (12 sets, daily range): BP systolic 90–145; BP diastolic 37–69
[2019-02-09] MEDS: NITROGLYCERIN 2% (1 GM=INCH) PACKET TP SCH ×3 (00:15→16:15)
[2019-02-09 07:06] LABS: BASOPHILS % (AUTO) 0.3 % (0.0-2.0); EOSINOPHILS % (AUTO) 1.8 % (1.0-6.0); HEMATOCRIT 21.5 % (41-53); HEMOGLOBIN 7.3 g/dL (13.5-17.5); LYMPHOCYTES # (AUTO) 0.5 K/uL (1.0-4.8); LYMPHOCYTES % (AUTO) 6.1 % (22.0-44.0); MEAN CORPUSCULAR HEMOGLOBIN 28.1 pg (26.0-34.0); MEAN CORPUSCULAR HGB CONC 33.9 G/dL (31.0-37.0); MEAN CORPUSCULAR VOLUME 83 fL (80-100); MONOCYTES # (AUTO) 1.3 K/uL (0.1-1.0); MONOCYTES % (AUTO) 14.8 % (2.0-9.0); NEUTROPHILS # (AUTO) 6.6 K/uL (1.8-7.7); PLATELET COUNT (AUTO) 154 K/uL (150-450); RED BLOOD CELL COUNT(AUTO) 2.59 MIL/uL (4.50-5.90); RED CELL DISTRIBUTION WIDTH 17.6 % (11.5-14.5)
[2019-02-09 07:38] LABS: ALBUMIN 1.8 g/dL (3.4-5.0); BILIRUBIN,TOTAL 0.4 mg/dL (0.1-1.0); CALCIUM, TOTAL 7.8 mg/dL (8.8-10.5); CREATININE 5.05 mg/dL (0.60-1.30); MAGNESIUM 1.9 mg/dL (1.80-2.40); POTASSIUM 5.4 mmol/L (3.5-5.1); TOTAL PROTEIN, SERUM 5.1 g/dL (6.4-8.2)
[2019-02-09] MEDS ORDERED: SODIUM CHLORIDE 0.9% IRRIG BTL 1,000 ML IRRIG ONE (08:48)
[2019-02-09] MEDS: SEVELAMER CARBONATE 800 MG POWDER PACKET PO SCH ×3 (08:52→18:02)
[2019-02-09] MEDS: DOCUSATE SODIUM 250 MG CAPSULE PO SCH (08:53)
[2019-02-09] MEDS: SODIUM CHLORIDE 0.9% 1,000 ML IV SCH (08:55)
[2019-02-09] MEDS: TraZODone HCL 50 MG TABLET PO SCH (09:00)
[2019-02-09] MEDS: ATORVASTATIN CALCIUM 40 MG TABLET PO SCH (09:00)
[2019-02-09] MEDS: PANTOPRAZOLE SODIUM 40 MG DR TABLET PO SCH (09:00)
[2019-02-09] MEDS: VITAMIN B COMPLEX WITH C TABLET PO SCH (09:00)
[2019-02-09] MEDS: HydrALAZINE HCL 25 MG TABLET PO SCH (09:00)
[2019-02-09] MEDS: RANOLAZINE 500 MG ER TABLET PO SCH (09:00)
[2019-02-09] MEDS: AMIODARONE HCL 200 MG TABLET PO SCH (09:00)
[2019-02-09] MEDS: METOPROLOL TARTRATE 25 MG TABLET PO SCH (09:00)
[2019-02-09] MEDS: ISOSORBIDE DINITRATE 10 MG TABLET PO SCH ×2 (09:00→16:00)
[2019-02-09] MEDS: AmLODIPine BESYLATE 10 MG TABLET PO SCH (09:00)
[2019-02-09] MEDS ORDERED: MANNITOL 25%-12.5 GM/50 ML VIAL IVP ONE (09:07)
[2019-02-09] MEDS ORDERED: SODIUM CHLORIDE 0.9% 2,000 ML IV ONE ×2 (10:09→17:28)
[2019-02-09] MEDS ORDERED: SODIUM CHLORIDE 0.9% 500 ML IV ONE (10:10)
[2019-02-09 11:18] LABS: GLUCOMETER DEV NAME(LOC) 5S.2A; GLUCOSE,POINT OF CARE 95 MG/DL (70-110)
[2019-02-09 11:27] LABS: GLUCOMETER DEV NAME(LOC) 5N.1; GLUCOSE,POINT OF CARE 99 MG/DL (70-110)
[2019-02-09 17:03] LABS: GLUCOMETER DEV NAME(LOC) 5N.1; GLUCOSE,POINT OF CARE 149 MG/DL (70-110)
[2019-02-09] MEDS: POLYETHYLENE GLYCOL 3350 17 GM PACKET PO SCH (18:01)
[2019-02-09 18:05] LABS: GLUCOMETER DEV NAME(LOC) 5N.2; GLUCOSE,POINT OF CARE 117 MG/DL (70-110)
[2019-02-09] MEDS: INSULIN LISPRO 100 UNITS/ML SQ PRN (18:17)
[2019-02-09] MEDS: INSULIN GLARGINE,HUM.REC.ANLOG 100 UNITS/ML SQ SCH (21:00)
[2019-02-10] VITALS (7 sets, daily range): BP systolic 100–150; BP diastolic 50–71
[2019-02-10] MEDS: NITROGLYCERIN 2% (1 GM=INCH) PACKET TP SCH ×4 (00:15→23:53)
[2019-02-10] MEDS: TraZODone HCL 50 MG TABLET PO SCH ×2 (00:48→20:57)
[2019-02-10] MEDS: PANTOPRAZOLE SODIUM 40 MG DR TABLET PO SCH ×3 (00:48→20:57)
[2019-02-10] MEDS: HydrALAZINE HCL 25 MG TABLET PO SCH ×3 (00:48→21:00)
[2019-02-10] MEDS: DOCUSATE SODIUM 250 MG CAPSULE PO SCH ×3 (00:48→20:57)
[2019-02-10] MEDS: METOPROLOL TARTRATE 25 MG TABLET PO SCH ×3 (00:48→21:00)
[2019-02-10] MEDS: ISOSORBIDE DINITRATE 10 MG TABLET PO SCH ×4 (00:48→20:57)
[2019-02-10] MEDS: RANOLAZINE 500 MG ER TABLET PO SCH ×3 (00:48→20:57)
[2019-02-10 06:47] LABS: BASOPHILS % (AUTO) 0.3 % (0.0-2.0); EOSINOPHILS % (AUTO) 2.2 % (1.0-6.0); HEMATOCRIT 25.7 % (41-53); HEMOGLOBIN 8.8 g/dL (13.5-17.5); LYMPHOCYTES # (AUTO) 0.5 K/uL (1.0-4.8); LYMPHOCYTES % (AUTO) 5.3 % (22.0-44.0); MEAN CORPUSCULAR HEMOGLOBIN 28.8 pg (26.0-34.0); MEAN CORPUSCULAR HGB CONC 34.3 G/dL (31.0-37.0); MEAN CORPUSCULAR VOLUME 84 fL (80-100); MONOCYTES # (AUTO) 1.5 K/uL (0.1-1.0); MONOCYTES % (AUTO) 15.4 % (2.0-9.0); NEUTROPHILS # (AUTO) 7.5 K/uL (1.8-7.7); NEUTROPHILS % (AUTO) 76.8 % (40.0-70.0); PLATELET COUNT (AUTO) 168 K/uL (150-450); RED BLOOD CELL COUNT(AUTO) 3.06 MIL/uL (4.50-5.90); RED CELL DISTRIBUTION WIDTH 16.9 % (11.5-14.5)
[2019-02-10 07:10] LABS: ALBUMIN 1.9 g/dL (3.4-5.0); BILIRUBIN,TOTAL 0.4 mg/dL (0.1-1.0); CREATININE 4.45 mg/dL (0.60-1.30); MAGNESIUM 1.7 mg/dL (1.80-2.40); POTASSIUM 4.5 mmol/L (3.5-5.1); TOTAL PROTEIN, SERUM 5.4 g/dL (6.4-8.2)
[2019-02-10] MEDS: SEVELAMER CARBONATE 800 MG POWDER PACKET PO SCH ×3 (08:33→17:34)
[2019-02-10] MEDS: POLYETHYLENE GLYCOL 3350 17 GM PACKET PO SCH (08:33)
[2019-02-10] MEDS: AMIODARONE HCL 200 MG TABLET PO SCH (08:33)
[2019-02-10] MEDS: ATORVASTATIN CALCIUM 40 MG TABLET PO SCH (08:34)
[2019-02-10] MEDS: VITAMIN B COMPLEX WITH C TABLET PO SCH (08:34)
[2019-02-10] MEDS: AmLODIPine BESYLATE 10 MG TABLET PO SCH (09:00)
[2019-02-10] MEDS: INSULIN LISPRO 100 UNITS/ML SQ PRN ×3 (11:52→20:55)
[2019-02-10] MEDS ORDERED: SODIUM CHLORIDE 0.9% 2,000 ML IV ONE (14:46)
[2019-02-10] MEDS ORDERED: EPOETIN ALFA 10,000 UNITS/ML 2 ML VIAL SQ SCH (16:00)
[2019-02-10 20:57] LABS: GLUCOMETER DEV NAME(LOC) 5S.2A; GLUCOSE,POINT OF CARE 119 MG/DL (70-110)
[2019-02-10] MEDS: INSULIN GLARGINE,HUM.REC.ANLOG 100 UNITS/ML SQ SCH (21:00)
[2019-02-11 00:04] VITALS: BP 115/58
[2019-02-11 05:08] VITALS: BP 141/67
[2019-02-11 06:41] LABS: GLUCOMETER DEV NAME(LOC) 5N.1; GLUCOSE,POINT OF CARE 130 MG/DL (70-110)
[2019-02-11 06:41] LABS: GLUCOMETER DEV NAME(LOC) 5N.1; GLUCOSE,POINT OF CARE 127 MG/DL (70-110)
[2019-02-11 06:42] LABS: GLUCOMETER DEV NAME(LOC) 5N.1; GLUCOSE,POINT OF CARE 165 MG/DL (70-110)
[2019-02-11 06:42] LABS: GLUCOMETER DEV NAME(LOC) 5N.1; GLUCOSE,POINT OF CARE 97 MG/DL (70-110)
[2019-02-11 06:42] LABS: GLUCOMETER DEV NAME(LOC) 5N.1; GLUCOSE,POINT OF CARE 103 MG/DL (70-110)
[2019-02-11 07:12] VITALS: BP 135/66
[2019-02-11 07:41] LABS: BASOPHILS % (AUTO) 0.2 % (0.0-2.0); EOSINOPHILS % (AUTO) 3.6 % (1.0-6.0); HEMATOCRIT 23.9 % (41-53); HEMOGLOBIN 8.3 g/dL (13.5-17.5); LYMPHOCYTES # (AUTO) 0.6 K/uL (1.0-4.8); LYMPHOCYTES % (AUTO) 6.9 % (22.0-44.0); MEAN CORPUSCULAR HEMOGLOBIN 29.2 pg (26.0-34.0); MEAN CORPUSCULAR HGB CONC 34.6 G/dL (31.0-37.0); MEAN CORPUSCULAR VOLUME 84 fL (80-100); MONOCYTES # (AUTO) 1.1 K/uL (0.1-1.0); MONOCYTES % (AUTO) 12.2 % (2.0-9.0); NEUTROPHILS # (AUTO) 7.2 K/uL (1.8-7.7); NEUTROPHILS % (AUTO) 77.1 % (40.0-70.0); PLATELET COUNT (AUTO) 175 K/uL (150-450); RED BLOOD CELL COUNT(AUTO) 2.83 MIL/uL (4.50-5.90); RED CELL DISTRIBUTION WIDTH 16.6 % (11.5-14.5)
[2019-02-11 07:56] LABS: CALCIUM, TOTAL 8.2 mg/dL (8.8-10.5); CREATININE 3.51 mg/dL (0.60-1.30); PHOSPHORUS 3.2 mg/dL (2.5-4.9); POTASSIUM 4.1 mmol/L (3.5-5.1)
[2019-02-11] MEDS: SEVELAMER CARBONATE 800 MG POWDER PACKET PO SCH ×3 (08:41→17:33)
[2019-02-11] MEDS: POLYETHYLENE GLYCOL 3350 17 GM PACKET PO SCH (08:41)
[2019-02-11] MEDS: AMIODARONE HCL 200 MG TABLET PO SCH (08:45)
[2019-02-11] MEDS: NITROGLYCERIN 2% (1 GM=INCH) PACKET TP SCH ×3 (08:45→23:34)
[2019-02-11] MEDS: RANOLAZINE 500 MG ER TABLET PO SCH ×2 (08:45→20:32)
[2019-02-11] MEDS: PANTOPRAZOLE SODIUM 40 MG DR TABLET PO SCH ×2 (08:45→20:32)
[2019-02-11] MEDS: DOCUSATE SODIUM 250 MG CAPSULE PO SCH ×2 (08:46→20:32)
[2019-02-11] MEDS: AmLODIPine BESYLATE 10 MG TABLET PO SCH (08:46)
[2019-02-11] MEDS: VITAMIN B COMPLEX WITH C TABLET PO SCH (08:47)
[2019-02-11] MEDS: ATORVASTATIN CALCIUM 40 MG TABLET PO SCH (08:49)
[2019-02-11 11:31] VITALS: BP 125/53
[2019-02-11] MEDS: ISOSORBIDE DINITRATE 10 MG TABLET PO SCH ×3 (11:55→20:32)
[2019-02-11] MEDS: METOPROLOL TARTRATE 25 MG TABLET PO SCH ×2 (11:55→20:44)
[2019-02-11] MEDS: HydrALAZINE HCL 25 MG TABLET PO SCH ×2 (11:55→20:44)
[2019-02-11] MEDS: INSULIN LISPRO 100 UNITS/ML SQ PRN ×3 (11:57→20:34)
[2019-02-11] MEDS ORDERED: LIDOCAINE 2% 30 ML JELLY TP PRN (14:45)
[2019-02-11] MEDS ORDERED: SODIUM CHLORIDE 0.9% IRRIG ONE (14:55)
[2019-02-11] MEDS: AMINOCAPROIC ACID IRRIG SCH ×2 (15:40→20:31)
[2019-02-11] MEDS: SODIUM CHLORIDE 0.9% IRRIG SCH ×2 (15:40→20:31)
[2019-02-11 16:08] VITALS: BP 139/65
[2019-02-11] MEDS: MAGNESIUM HYDROXIDE SUSPENSION 30 ML UDCUP PO PRN (17:43)
[2019-02-11 17:50] LABS: GLUCOMETER DEV NAME(LOC) 5S.2A; GLUCOSE,POINT OF CARE 159 MG/DL (70-110)
[2019-02-11 20:13] VITALS: BP 104/50
[2019-02-11 20:25] LABS: GLUCOMETER DEV NAME(LOC) 5S.2A; GLUCOSE,POINT OF CARE 102 MG/DL (70-110)
[2019-02-11] MEDS: TraZODone HCL 50 MG TABLET PO SCH (20:32)
[2019-02-11] MEDS: INSULIN GLARGINE,HUM.REC.ANLOG 100 UNITS/ML SQ SCH (20:43)
[2019-02-12] VITALS (7 sets, daily range): BP systolic 120–137; BP diastolic 60–77
[2019-02-12] MEDS: AMINOCAPROIC ACID IRRIG SCH ×5 (01:01→21:59)
[2019-02-12] MEDS: SODIUM CHLORIDE 0.9% IRRIG SCH ×5 (01:01→21:59)
[2019-02-12] MEDS: INSULIN LISPRO 100 UNITS/ML SQ PRN ×4 (05:46→22:08)
[2019-02-12] MEDS: POLYETHYLENE GLYCOL 3350 17 GM PACKET PO SCH (08:52)
[2019-02-12] MEDS: NITROGLYCERIN 2% (1 GM=INCH) PACKET TP SCH ×2 (08:52→16:14)
[2019-02-12] MEDS: SEVELAMER CARBONATE 800 MG POWDER PACKET PO SCH ×3 (08:52→17:57)
[2019-02-12] MEDS: AmLODIPine BESYLATE 10 MG TABLET PO SCH (08:53)
[2019-02-12] MEDS: RANOLAZINE 500 MG ER TABLET PO SCH ×2 (08:53→20:37)
[2019-02-12] MEDS: AMIODARONE HCL 200 MG TABLET PO SCH (08:53)
[2019-02-12] MEDS: ATORVASTATIN CALCIUM 40 MG TABLET PO SCH (08:53)
[2019-02-12] MEDS: VITAMIN B COMPLEX WITH C TABLET PO SCH (08:53)
[2019-02-12] MEDS: PANTOPRAZOLE SODIUM 40 MG DR TABLET PO SCH ×2 (08:53→20:36)
[2019-02-12] MEDS: ISOSORBIDE DINITRATE 10 MG TABLET PO SCH ×3 (08:54→20:36)
[2019-02-12] MEDS: DOCUSATE SODIUM 250 MG CAPSULE PO SCH ×2 (08:54→20:36)
[2019-02-12] MEDS: HydrALAZINE HCL 25 MG TABLET PO SCH ×2 (12:32→20:36)
[2019-02-12] MEDS: METOPROLOL TARTRATE 25 MG TABLET PO SCH ×2 (12:33→20:36)
[2019-02-12 14:26] LABS: HEMATOCRIT 24.7 % (41-53); HEMOGLOBIN 8.1 g/dL (13.5-17.5); MEAN CORPUSCULAR HEMOGLOBIN 28.1 pg (26.0-34.0); MEAN CORPUSCULAR HGB CONC 32.6 G/dL (31.0-37.0); MEAN CORPUSCULAR VOLUME 86 fL (80-100); PLATELET COUNT (AUTO) 208 K/uL (150-450); RED BLOOD CELL COUNT(AUTO) 2.86 MIL/uL (4.50-5.90); RED CELL DISTRIBUTION WIDTH 17.2 % (11.5-14.5)
[2019-02-12 15:31] LABS: BAND NEUTROPHILS % (MANUAL) 3 % (0-5); EOSINOPHILS % (MANUAL) 1 % (1-6); LYMPHOCYTES % (MANUAL) 7 % (22-44); MONOCYTES % (MANUAL) 7 % (2-9); PLATELET MORPHOLOGY COMMENT GIANT PLTS PRESENT; SEGMENTED NEUTROPHILS % 82 % (40-70)
[2019-02-12 18:31] LABS: GLUCOMETER DEV NAME(LOC) 5S.2A; GLUCOSE,POINT OF CARE 143 MG/DL (70-110)
[2019-02-12] MEDS: TraZODone HCL 50 MG TABLET PO SCH (20:36)
[2019-02-12] MEDS: INSULIN GLARGINE,HUM.REC.ANLOG 100 UNITS/ML SQ SCH (22:08)
[2019-02-13] MEDS: NITROGLYCERIN 2% (1 GM=INCH) PACKET TP SCH (00:59)
[2019-02-13] MEDS: AMINOCAPROIC ACID IRRIG SCH ×2 (02:00→06:23)
[2019-02-13] MEDS: SODIUM CHLORIDE 0.9% IRRIG SCH ×2 (02:00→06:23)
[2019-02-13 05:01] VITALS: BP 144/64
[2019-02-13 05:46] LABS: GLUCOMETER DEV NAME(LOC) 5N.1; GLUCOSE,POINT OF CARE 151 MG/DL (70-110)
[2019-02-13 05:46] LABS: GLUCOMETER DEV NAME(LOC) 5N.1; GLUCOSE,POINT OF CARE 129 MG/DL (70-110)
[2019-02-13 05:47] LABS: GLUCOMETER DEV NAME(LOC) 5N.1; GLUCOSE,POINT OF CARE 163 MG/DL (70-110)
[2019-02-13 05:47] LABS: GLUCOMETER DEV NAME(LOC) 5N.1; GLUCOSE,POINT OF CARE 185 MG/DL (70-110)
[2019-02-13 07:33] VITALS: BP 133/70
[2019-02-13 07:51] LABS: HEMATOCRIT 23.8 % (41-53); HEMOGLOBIN 7.9 g/dL (13.5-17.5); MEAN CORPUSCULAR HEMOGLOBIN 28.2 pg (26.0-34.0); MEAN CORPUSCULAR HGB CONC 33.1 G/dL (31.0-37.0); MEAN CORPUSCULAR VOLUME 85 fL (80-100); PLATELET COUNT (AUTO) 227 K/uL (150-450); RED CELL DISTRIBUTION WIDTH 17.2 % (11.5-14.5)
[2019-02-13] MEDS ORDERED: SODIUM CHLORIDE 0.9% 2,000 ML ONE (07:55)
[2019-02-13] MEDS: SEVELAMER CARBONATE 800 MG POWDER PACKET PO SCH (08:06)
[2019-02-13 09:32] LABS: BAND NEUTROPHILS % (MANUAL) 2 % (0-5); EOSINOPHILS % (MANUAL) 1 % (1-6); LYMPHOCYTES % (MANUAL) 5 % (22-44); MONOCYTES % (MANUAL) 9 % (2-9); SEGMENTED NEUTROPHILS % 83 % (40-70)
[2019-02-13 09:34] LABS: PLATELET MORPHOLOGY COMMENT LARGE PLTS PRESENT
[2019-02-13 10:52] VITALS: BP 150/68
[2019-02-13 11:22] LABS: GLUCOMETER DEV NAME(LOC) 5S.2A; GLUCOSE,POINT OF CARE 119 MG/DL (70-110)
[2019-02-13] MEDS ORDERED: METO25 PO ×2 (14:48→14:50)
[2019-02-13] MEDS ORDERED: NTP TD (14:51)
[2019-02-13] MEDS ORDERED: ACET-2247 PO (14:53)
[2019-02-13] MEDS ORDERED: INSU100V SQ (15:09)
[2019-02-13 15:17] VITALS: BP 126/62
[2019-02-13 22:59] LABS: GLUCOMETER DEV NAME(LOC) 5S.2A; GLUCOSE,POINT OF CARE 88 MG/DL (70-110)
[2019-02-14 11:05] LABS: GLUCOMETER DEV NAME(LOC) 2WR.2; GLUCOSE,POINT OF CARE 149 MG/DL (70-110)
== END 2019-02-13 16:10 | disposition home or self-care (01) | DRG 668 ==
LOC: EMS 11:53 → 5S 17:51
PROVIDERS: ADMIT Hospitalist; ATTEND Hospitalist
PROC: 5A1D70Z Performance of Urinary Filtration, Intermittent, Less than 6 Hours Per Day (ICD-10-PCS; 2019-02-01)
PROC: 5A1D70Z Performance of Urinary Filtration, Intermittent, Less than 6 Hours Per Day (ICD-10-PCS; 2019-02-03)
PROC: 5A1D70Z Performance of Urinary Filtration, Intermittent, Less than 6 Hours Per Day (ICD-10-PCS; 2019-02-06)
PROC: 0TCB8ZZ Extirpation of Matter from Bladder, Via Natural or Artificial Opening Endoscopic (ICD-10-PCS; 2019-02-08)
PROC: 5A1D70Z Performance of Urinary Filtration, Intermittent, Less than 6 Hours Per Day (ICD-10-PCS; 2019-02-08)
PROC: 0T5B8ZZ Destruction of Bladder, Via Natural or Artificial Opening Endoscopic (ICD-10-PCS; principal; 2019-02-08 16:00)
PROC: 5A1D70Z Performance of Urinary Filtration, Intermittent, Less than 6 Hours Per Day (ICD-10-PCS; 2019-02-09)
PROC: 5A1D70Z Performance of Urinary Filtration, Intermittent, Less than 6 Hours Per Day (ICD-10-PCS; 2019-02-10)
PROC: 5A1D70Z Performance of Urinary Filtration, Intermittent, Less than 6 Hours Per Day (ICD-10-PCS; 2019-02-13)
DX: N30.91 Cystitis, unspecified with hematuria (principal); I21.4 Non-ST elevation (NSTEMI) myocardial infarction; N18.6 End stage renal disease; E43 Unspecified severe protein-calorie malnutrition; N25.81 Secondary hyperparathyroidism of renal origin; I50.20 Unspecified systolic (congestive) heart failure; I13.2 Hypertensive heart and chronic kidney disease with heart failure and with stage 5 chronic kidney disease, or end stage renal disease; E46 Unspecified protein-calorie malnutrition; N02.9 Recurrent and persistent hematuria with unspecified morphologic changes; I48.0 Paroxysmal atrial fibrillation; E11.22 Type 2 diabetes mellitus with diabetic chronic kidney disease; D63.8 Anemia in other chronic diseases classified elsewhere; E11.51 Type 2 diabetes mellitus with diabetic peripheral angiopathy without gangrene; M10.9 Gout, unspecified; J44.9 Chronic obstructive pulmonary disease, unspecified; Z66 Do not resuscitate; E78.5 Hyperlipidemia, unspecified; I25.10 Atherosclerotic heart disease of native coronary artery without angina pectoris; N32.89 Other specified disorders of bladder; F32.9 Major depressive disorder, single episode, unspecified; D63.1 Anemia in chronic kidney disease; R13.10 Dysphagia, unspecified; I95.9 Hypotension, unspecified; R62.7 Adult failure to thrive; E87.5 Hyperkalemia; Z95.1 Presence of aortocoronary bypass graft; Z99.2 Dependence on renal dialysis; Z85.46 Personal history of malignant neoplasm of prostate; Z68.20 Body mass index [BMI] 20.0-20.9, adult; Z79.4 Long term (current) use of insulin; Z83.3 Family history of diabetes mellitus; Z87.891 Personal history of nicotine dependence; Z95.5 Presence of coronary angioplasty implant and graft
CPT/HCPCS: 36430; 82270; 83605; 83735; 84100; 85007; 85014; 85018; 86850; 86900; 86901; 86920; 87081; 87340; 93005; 93306; 97110; 97116; 97162; 97166; 97530; 97535; 99291; G0378; J0885; J1815; J1956; J2150; J2270; J2370; J2405; J2704; J3010; J3490; J7030; J7040; J7042; J7050; P9016